=== PATIENT | female | born 1995 | race Caucasian/White ===

== ENCOUNTER → 2016-10-30 | Outpatient (CLI) | payer OTHER ==
[2016-10-30 09:22] LABS: BASO % 0 % (0-3); EOS % 1 % (0-3); HEMATOCRIT 41.6 % (36.0-47.0); HEMOGLOBIN 14.7 g/dL (12.0-15.5); LYMPH # 1.6 x10^3/uL (1.0-4.8); LYMPH % 20 % (24-48); MEAN CORPUSCULAR HEMOGLOBIN 30 pg (25-35); MEAN CORPUSCULAR HGB CONC 35 g/dL (31-37); MEAN CORPUSCULAR VOLUME 85 fL (79-100); MONO % 7 % (0-9); NEUT % 72 % (31-73); PLATELET COUNT 235 x10^3/uL (140-400); RED BLOOD COUNT 4.87 x10^6/uL (3.50-5.40); RED CELL DISTRIBUTION WIDTH 12.4 % (11.5-14.5)
[2016-10-30 09:52] LABS: ALBUMIN/GLOBULIN RATIO 1.2 (1.0-1.7); CALCIUM 9.1 mg/dL (8.5-10.1); CREATININE 0.7 mg/dL (0.6-1.0); GFR 104.6; POTASSIUM 3.3 mmol/L (3.5-5.1); TOTAL BILIRUBIN 0.6 mg/dL (0.2-1.0); TOTAL PROTEIN 7.4 g/dL (6.4-8.2)
[2016-10-30 09:53] LABS: CHOLESTEROL/HDL RATIO 2.1
== END | disposition home or self-care (01) ==
LOC: LAB 07:45
PROVIDERS: ATTEND Family Medicine
DX: Z01.419 Encounter for gynecological examination (general) (routine) without abnormal findings (principal)
CPT/HCPCS: 36415; 80053; 80061; 84443; 85025

== ENCOUNTER 2017-09-12 20:06 | Inpatient (IN) | payer OTHER ==
[2017-09-12] MEDS ORDERED: DOCUSATE SODIUM 283 MG/5 ML ENEMA. PR (20:15)
[2017-09-12] MEDS ORDERED: TERBUTALINE 1 MG/ML VIAL. SQ (20:15)
[2017-09-12] MEDS ORDERED: LIDOCAINE 1% PF 30 ML VIAL. INJ (20:15)
[2017-09-12] MEDS ORDERED: fentaNYL PF VIAL 100 MCG/2 ML VIAL IV (20:15)
[2017-09-12] MEDS ORDERED: OXYTOCIN 30 UNIT/500 ML PREMIX 500 ML IV (20:15)
[2017-09-12] MEDS ORDERED: ACETAMINOPHEN 325 MG TABLET. PO (20:15)
[2017-09-12] MEDS: DINOPROSTONE 10 MG SUPP.VAG VG (20:15)
[2017-09-12] MEDS ORDERED: 0.9 % SODIUM CHLORIDE 10 ML DISP.SYRIN. IV (20:15)
[2017-09-12] MEDS ORDERED: MAG HYDROX/ALUMINUM HYD/SIMETH 30 ML ORAL.SUSP PO (20:15)
[2017-09-12 21:03] LABS: ADD MAN DIFF? NO
[2017-09-12 21:04] LABS: BASO # 0.1 x10^3/uL (0.0-0.2); BASO % 1 % (0-3); EOS # 0.1 x10^3/uL (0.0-0.7); EOS % 1 % (0-3); HEMATOCRIT 38.8 % (36.0-47.0); HEMOGLOBIN 13.5 g/dL (12.0-15.5); LYMPH # 1.7 x10^3/uL (1.0-4.8); LYMPH % 14 % (24-48); MEAN CORPUSCULAR HEMOGLOBIN 30 pg (25-35); MEAN CORPUSCULAR HGB CONC 35 g/dL (31-37); MEAN CORPUSCULAR VOLUME 86 fL (79-100); MONO % 8 % (0-9); NEUT # 9.6 x10^3uL (1.8-7.7); NEUT % 76 % (31-73); PLATELET COUNT 130 x10^3/uL (140-400); RED BLOOD COUNT 4.52 x10^6/uL (3.50-5.40); RED CELL DISTRIBUTION WIDTH 13.3 % (11.5-14.5); WHITE BLOOD COUNT 12.6 x10^3/uL (4.0-11.0)
[2017-09-13 00:04] LABS: BILIRUBIN,URINE NEGATIVE (NEG); CLARITY,URINE CLEAR; COLOR,URINE YELLOW; GLUCOSE,URINE NEGATIVE (NEG); NITRITE,URINE NEGATIVE (NEG); PH,URINE 7.5; PROTEIN,URINE NEGATIVE (NEG-TRACE); UROBILINOGEN,URINE 0.2 mg/dL (0.2 mg/dL)
[2017-09-13] MEDS: IV RINGERS,LACTATED 1000ML 1,000 ML IV ×5 (04:13→20:13)
[2017-09-13] MEDS: OXYTOCIN 30 UNIT/500 ML PREMIX 500 ML IV (06:11)
[2017-09-13] MEDS: fentaNYL PF VIAL 100 MCG/2 ML VIAL IV (14:29)
[2017-09-13] MEDS ORDERED: ROPIVacaine 0.2% IN 0.9%NACL PF 40 MG/20 ML DISP.SYRIN. ×2 (16:00→16:01)
[2017-09-13] MEDS ORDERED: L&D EPIDURAL 50 ML SYRINGE. EP (16:00)
[2017-09-13] MEDS ORDERED: L&D EPIDURAL SYRINGE 50 ML EP (16:01)
[2017-09-13] MEDS ORDERED: fentaNYL PF VIAL 100 MCG/2 ML VIAL EPI (18:30)
[2017-09-13] MEDS ORDERED: NALOXONE 0.4 MG/ML VIAL. IV (18:30)
[2017-09-13] MEDS ORDERED: ePHEDrine PF IN SALINE 50 MG/5 ML DISP.SYRIN IV (18:30)
[2017-09-13] MEDS ORDERED: ONDANSETRON PF 4 MG/2 ML VIAL. IV (18:30)
[2017-09-13] MEDS ORDERED: ROPIVacaine 0.2% IN 0.9%NACL PF 40 MG/20 ML DISP.SYRIN. EPI (18:30)
[2017-09-13] MEDS ORDERED: MAG HYDROX/ALUMINUM HYD/SIMETH 30 ML ORAL.SUSP PO (20:15)
[2017-09-13] MEDS ORDERED: 0.9 % SODIUM CHLORIDE 10 ML DISP.SYRIN. IV (20:15)
[2017-09-13] MEDS ORDERED: SIMETHICONE 80 MG TAB.CHEW PO (20:15)
[2017-09-13] MEDS ORDERED: ZOLPIDEM 5 MG TABLET. PO (20:15)
[2017-09-13] MEDS ORDERED: PHENYLEPH/MINERAL OIL/PETROLAT RECTAL OINTMENT 28GM TUBE. RC (20:15)
[2017-09-13] MEDS ORDERED: OXYTOCIN 30 UNIT/500 ML PREMIX 500 ML IV (20:15)
[2017-09-13] MEDS ORDERED: BENZOCAINE 20% TOPICAL AEROSOL SPRAY 57GM CAN. TP (20:15)
[2017-09-13] MEDS ORDERED: HYDROCORTISONE 1% TOPICAL OINTMENT 30GM TUBE. TP (20:15)
[2017-09-13] MEDS ORDERED: ACETAMINOPHEN 325 MG TABLET. PO (20:15)
[2017-09-13] MEDS ORDERED: MMR per PROTOCOL. MC (20:15)
[2017-09-13] MEDS: oxyCODONE/APAP 5/325 1 TAB TABLET PO (21:04)
[2017-09-13] MEDS: IBUPROFEN 800 MG TABLET. PO (21:04)
[2017-09-13] MEDS: ONDANSETRON PF 4 MG/2 ML VIAL. IV (21:05)
[2017-09-14] MEDS: DOCUSATE SODIUM 100 MG CAPSULE. PO ×2 (02:34→07:52)
[2017-09-14] MEDS: oxyCODONE/APAP 5/325 1 TAB TABLET PO (02:38)
[2017-09-14 05:39] LABS: ADD MAN DIFF? NO
[2017-09-14 05:52] LABS: BASO # 0.1 x10^3/uL (0.0-0.2); BASO % 0 % (0-3); EOS # 0.1 x10^3/uL (0.0-0.7); EOS % 1 % (0-3); HEMATOCRIT 37.4 % (36.0-47.0); HEMOGLOBIN 12.9 g/dL (12.0-15.5); LYMPH # 1.9 x10^3/uL (1.0-4.8); LYMPH % 10 % (24-48); MEAN CORPUSCULAR HEMOGLOBIN 30 pg (25-35); MEAN CORPUSCULAR HGB CONC 35 g/dL (31-37); MEAN CORPUSCULAR VOLUME 87 fL (79-100); MONO # 1.4 x10^3/uL (0.0-1.1); MONO % 8 % (0-9); NEUT # 15.2 x10^3uL (1.8-7.7); NEUT % 81 % (31-73); PLATELET COUNT 151 x10^3/uL (140-400); RED BLOOD COUNT 4.31 x10^6/uL (3.50-5.40); RED CELL DISTRIBUTION WIDTH 13.2 % (11.5-14.5); WHITE BLOOD COUNT 18.7 x10^3/uL (4.0-11.0)
[2017-09-14] MEDS: FERROUS SULFATE 325 MG TABLET. PO ×2 (07:21→15:46)
[2017-09-14] MEDS: IBUPROFEN 800 MG TABLET. PO ×3 (07:52→22:58)
[2017-09-14] MEDS: MAGNESIUM HYDROXIDE 2,400 MG/30 ML ORAL.SUSP. PO (15:35)
[2017-09-14] MEDS ORDERED: MAGNESIUM HYDROXIDE 2,400 MG/30 ML ORAL.SUSP. PO (15:45)
[2017-09-15] MEDS: IBUPROFEN 800 MG TABLET. PO (06:36)
[2017-09-15] MEDS: DIPHTH,PERTUSS(ACELL),TET TOX 0.5 ML DISP.SYRIN. VAX IM (09:41)
[2017-09-15] MEDS: MAGNESIUM HYDROXIDE 2,400 MG/30 ML ORAL.SUSP. PO (09:42)
[2017-09-15] MEDS: DOCUSATE SODIUM 100 MG CAPSULE. PO (09:43)
[2017-09-15] MEDS: FERROUS SULFATE 325 MG TABLET. PO (09:43)
== END 2017-09-15 20:30 | disposition home or self-care (01) | DRG 775 ==
LOC: 3 SO LND 20:06
PROVIDERS: Obstetrics & Gynecology
PROC: 10D07Z6 Extraction of Products of Conception, Vacuum, Via Natural or Artificial Opening (ICD-10-PCS; principal; 2017-09-13)
PROC: 0KQM0ZZ Repair Perineum Muscle, Open Approach (ICD-10-PCS; 2017-09-13)
PROC: 3E033VJ Introduction of Other Hormone into Peripheral Vein, Percutaneous Approach (ICD-10-PCS; 2017-09-13)
PROC: 3E0P7VZ Introduction of Hormone into Female Reproductive, Via Natural or Artificial Opening (ICD-10-PCS; 2017-09-13)
PROC: 10907ZC Drainage of Amniotic Fluid, Therapeutic from Products of Conception, Via Natural or Artificial Opening (ICD-10-PCS; 2017-09-13)
PROC: 3E0R3BZ Introduction of Anesthetic Agent into Spinal Canal, Percutaneous Approach (ICD-10-PCS; 2017-09-13)
PROC: 00HU33Z Insertion of Infusion Device into Spinal Canal, Percutaneous Approach (ICD-10-PCS; 2017-09-13)
DX: O76 Abnormality in fetal heart rate and rhythm complicating labor and delivery (principal); O70.1 Second degree perineal laceration during delivery; Z37.0 Single live birth; Z3A.40 40 weeks gestation of pregnancy; Z88.0 Allergy status to penicillin; Z88.8 Allergy status to other drugs, medicaments and biological substances
CPT/HCPCS: 36415; 81003; 85025; 86592; 86850; 86900; 86901; 90715; J2405; J2590; J2795; J3010; J7120